=== PATIENT | male | born 1950 | race Caucasian/White ===

== ENCOUNTER 2016-08-19 07:03 | Emergency (ER) | payer OTHER, MEDICARE, MEDICAID ==
[~2016-08-19] VITALS: Ht 190.5 cm; Wt 106.6 kg
[2016-08-19 07:03] VITALS: BP 149/106; PULSE 73; RESP 18; TEMP 98.6; O2SAT 99
--- NOTE | 2016-08-19 07:03 | NUR ---
Pt states he had a mechanical fall that resulted in the pt hitting the glass window with his head. Denies KO. [id number]. No bruising, deformities, and swelling noted. Will continue to monitor. No other injuries or complaints mentioned/noted. No distress noted.
--- NOTE | 2016-08-19 07:03 | NUR ---
Patient to ER bed 6 to gown for evaluation. Side rails up. Report given to James GOINS.
--- NOTE | 2016-08-19 07:10 | NUR ---
ER Dr. Concepcion at bedside examining patient.
[2016-08-19 07:15] VITALS: BP 136/88; PULSE 68; RESP 20; TEMP 98.6; O2SAT 100
--- NOTE | 2016-08-19 07:15 | NUR ---
Patient given written and verbal discharge instructions and verbalizes understanding. ER MD discussed with patient the results and treatment provided. Patient in stable condition. ID arm band removed. Patient educated on pain management and to follow up with PMD. Pain Scale 0/10. Opportunity for questions provided and answered.
== END 2016-08-19 07:15 | disposition home or self-care (01) ==
LOC: SED 07:03
DX: S09.90XA Unspecified injury of head, initial encounter (principal); I10 Essential (primary) hypertension; E03.9 Hypothyroidism, unspecified; E78.5 Hyperlipidemia, unspecified; Z88.7 Allergy status to serum and vaccine; W07.XXXA Fall from chair, initial encounter; Y93.89 Activity, other specified; Y99.8 Other external cause status; Y92.89 Other specified places as the place of occurrence of the external cause
CPT/HCPCS: 99283; J7030